=== PATIENT | male | born 1945 | race Caucasian/White ===

== ENCOUNTER 2017-07-28 15:49 | Inpatient (IN) | payer OTHER, BC ==
[2017-07-28 16:27] VITALS: BMI 31.3
--- NOTE | 2017-07-28 16:35 | PDOC ---
History of Present Illness <Kishan Jacobs - Last Filed: 07/28/17 18:01> - General History Source: Patient Exam Limitations: No Limitations - History of Present Illness Initial Comments: 07/28/17 19:00 The patient is a 71 year old male with a significant PMH of BPH (foster in place ) who sent in by PCP, Dr. Quiles to the emergency department for evaluation of A-flutter. The patient has no complaints today. The patient denies chest pain , SOB, lightheadedness, dizziness, palpiatations, leg swelling, dizziness, vision changes, numbness/tingling or weakness of the extremities. 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 The patient is complaining of dysruria but is following a urologist for this. Denies fever, chills, nausea, vomit, diarrhea and constipation. Denies frequency, urgency and hematuria. Allergies: NKA Past surgical history: None reported. Social history: No reported alcohol, drug, or cigarette use. PCP: Dr. Quiles <Milagro Monson - Last Filed: 07/28/17 19:01> - General Chief Complaint: Irregular Heart Beat Stated Complaint: pcp sent Time Seen by Provider: 07/28/17 16:27 Past History - Past Medical History Anemia: No Asthma: No Cancer: No Cardiac Disorders: No CVA: No COPD: No CHF: No Dementia: No Diabetes: No GI Disorders: No Disorders: Yes (FREQUENT URINATION) HTN: No Hypercholesterolemia: No Kidney Stones: Yes (W/LITHOTRIPSY AND UTI'S) Liver Disease: No Seizures: No Thyroid Disease: No - Surgical History Abdominal Surgery: No Appendectomy: No Cardiac Surgery: No Cholecystectomy: No Lung Surgery: No Neurologic Surgery: No Orthopedic Surgery: Yes (BILATERAL KNEE ARTHROSCOPIC SURGERY RIGHT SHOULDER SURGERY) - Suicide/Smoking/Psychosocial Hx Smoking Status: No Smoking History: Unknown if ever smoked Have you smoked in the past 12 months: No Number of Cigarettes Smoked Daily: 0 Hx Alcohol Use: Yes Drug/Substance Use Hx: No Substance Use Type: None Hx Substance Use Treatment: No <Kishan Jacobs - Last Filed: 07/28/17 18:01> <Milagro Monson - Last Filed: 07/28/17 19:01> - Past Medical History Allergies/Adverse Reactions: Allergies Allergy/AdvReac Type Severity Reaction Status Date / Time No Known Allergies Allergy Verified 07/28/17 16:16 Home Medications: Ambulatory Orders Oxycodone HCl [Oxycontin] 10 mg PO Q4H PRN 07/28/17 Tamsulosin HCl [Flomax] 0.4 mg PO DAILY 07/28/17 Review of Systems - Review of Systems Able to Perform ROS?: Yes Comments:: 07/28/17 19:00 CONSTITUTIONAL: No reported: Fever, Chills, Diaphoresis, Generalized Weakness, Malaise, Loss of Appetite HEENT: No reported: Rhinorrhea, Nasal Congestion, Throat Pain, Throat Swelling, Difficulty Swallowing, Mouth Swelling, Ear Pain, Eye Pain, Visual Changes CARDIOVASCULAR: No reported: Chest Pain, Syncope, Palpitations, Irregular Heart Rate, Lightheadedness, Peripheral Edema RESPIRATORY: No reported: Cough, Shortness of Breath, SOB with Exertion, Orthopnea, Wheezing , Stridor, Hemoptysis GASTROINTESTINAL: No reported: Abdominal pain, Abdominal Distension, Nausea, Vomiting, Diarrhea, Constipation, Melena, Hematochezia GENITOURINARY: + Dysuria, No reported: Frequency, Urgency, Hesitancy, Flank Pain, Genital Pain MUSCULOSKELETAL: No reported: Myalgia, Arthralgia, Joint Swelling, Back pain, Neck Pain SKIN: No reported: Rash, Itching, Pallor HEMEATOLOGIC/IMMUNOLOGIC: No reported: Easy Bleeding, Easy Bruising, Lymphadenopathy, Frequent infections ENDOCRINE: No reported: Unexplained Weight Gain, Unexplained Weight Loss, Heat Intolerance , Cold Intolerance NEUROLOGIC: No reported: Headache, Focal Weakness, Paresthesias, Vertigo, Lightheadedness, Unsteady Gait, Seizure, Mental Status Changes, Incontinence PSYCHIATRIC: No reported: Anxiety, Depression <Milagro Monson - Last Filed: 07/28/17 19:01> *Physical Exam - Vital Signs Last Vital Signs Temp Pulse Resp BP Pulse Ox 98 F 117 H 18 124/70 98 07/28/17 16:16 07/28/17 16:16 07/28/17 16:16 07/28/17 16:16 07/28/17 16:16 <Kishan Jacobs - Last Filed: 07/28/17 18:01> - Vital Signs Last Vital Signs Temp Pulse Resp BP Pulse Ox 98 F 117 H 18 124/70 98 07/28/17 16:16 07/28/17 16:16 07/28/17 16:16 07/28/17 16:16 07/28/17 16:16 - Physical Exam Comments: 07/28/17 19:00 "GENERAL: The patient is awake, alert, and fully oriented, Nontoxic - in no acute distress. HEAD: Normocephalic, atraumatic. EYES: extraocular movements intact, sclera anicteric, conjunctiva clear. ENT: Normal voice, Moist mucous membranes. NECK: Normal range of motion, supple LUNGS: Breath sounds equal, clear to auscultation bilaterally. No wheezes, no rhonchi, no rales. HEART: irregular, slightly tachycardic ABDOMEN: Soft, nontender, normoactive bowel sounds. No guarding, no rebound.No CVA tenderness EXTREMITIES: Normal range of motion, no edema. No clubbing or cyanosis. No cords, erythema, or tenderness. NEUROLOGICAL: No facial assymetry, Normal speech, PSYCH: Normal mood, normal affect. SKIN: Warm, Dry, normal turgor," <Milagro Monson - Last Filed: 07/28/17 19:01> Heart Score/ECG Review - ECG Impressions Comment:: 07/28/17 17:55 Twelve-lead EKG was performed and reviewed by me. Irregular, rate of 103 Incomplete right bundle-branch block Flutter waves present Impression: Atrial flutter with variable block <Kishan Jacobs - Last Filed: 07/28/17 18:01> ED Treatment Course - LABORATORY CBC & Chemistry Diagram: 07/28/17 16:58 07/28/17 16:58 <Kishan Jacobs - Last Filed: 07/28/17 18:01> - LABORATORY CBC & Chemistry Diagram: 07/28/17 16:58 07/28/17 16:58 - ADDITIONAL ORDERS Additional order review: Laboratory Results 07/28/17 07/28/17 16:58 16:58 PT with INR 11.00 INR 0.97 Sodium 136 Potassium 4.3 Chloride 103 Carbon Dioxide 30 Anion Gap 3 L BUN 27 H D Creatinine 1.5 H Creat Clearance w eGFR 46.00 Random Glucose 86 Calcium 8.7 Magnesium 2.0 Total Bilirubin 0.4 D AST 14 L D ALT 24 D Alkaline Phosphatase 76 Creatine Kinase 225 Troponin I < 0.02 Total Protein 7.3 Albumin 3.5 07/28/17 16:58 RBC 3.87 L MCV 94.4 MCHC 34.6 RDW 12.9 MPV 7.3 L Neutrophils % 61.0 D Lymphocytes % 25.6 D Monocytes % 11.8 H Eosinophils % 1.3 D Basophils % 0.3 - Medications Given in the ED: ED Medications Discontinued Medications Generic Name Dose Route Start Last Admin Trade Name Wali PRN Reason Stop Dose Admin Apixaban 5 mg 07/28/17 18:01 07/28/17 18:53 Eliquis - PO 07/28/17 18:02 5 mg NOW ONE Administration Aspirin 162 mg 07/28/17 16:51 07/28/17 17:04 Asa - PO 07/28/17 16:52 162 mg ONCE ONE Administration Metoprolol Succinate 25 mg 07/28/17 18:01 07/28/17 18:53 Toprol Xl - PO 07/28/17 18:02 25 mg ONCE ONE Administration <Milagro Monson - Last Filed: 07/28/17 19:01> Medical Decision Making - Medical Decision Making 07/28/17 16:51 71-year-old gentleman history of BPH with a Foster sent in for irregular heartbeat PMD, noted to be A. fib, is otherwise asymptomatic without any complaints including chest pain, shortness of breath, dyspnea on exertion, lightheadedness, palpitations, leg swelling, dizziness, vision changes, numbness , tingling, weakness or other complaints. The patient does have a history of dysuria recently. Atrial flutter on the patient's EKG here rate controlled to low 100s [id number] score of 1 will give aspirin We'll place on a beautician apprentice Will obtain blood work Will discuss with cardiology anticipate observation for further workup 07/28/17 17:51 labs reviewed pts HR controlled case peter tamayo agree admission for further management cassie for tele request consult w/ dr. shetty 07/28/17 18:01 case peetr shetty recommends toprol xl 25, eliquis 5mg Case discussed in detail with admitting physician including history, physical exam and ancillary studies. Admitting physician has assumed care for the patient, will follow all pending diagnostics and will complete the evaluation and treatment. <Reynaldo,Kishan - Last Filed: 07/28/17 18:01> *DC/Admit/Observation/Transfer - Discharge Dispostion Admit: Yes <Kishan Jacobs - Last Filed: 07/28/17 18:01> - Attestations Scribe Attestion: 07/28/17 19:01 Documentation prepared by Milagro Monson, acting as medical oncology physician for Kishan Jacobs MD. <Milagro Monson - Last Filed: 07/28/17 19:01> Diagnosis at time of Disposition: Atrial fibrillation and flutter - Discharge Dispostion Condition at time of disposition: Guarded
[2017-07-28] MEDS ORDERED: ASPIRIN 81 MG CHEWABLE TABLETS PO ONE (16:51)
[2017-07-28] MEDS ORDERED: ASPIRIN 81 MG CHEWABLE TABLETS ONE (17:01)
[2017-07-28 17:18] LABS: BASO % 0.3 % (0-2.0); EOS % 1.3 % (0-4.5); HEMATOCRIT 36.5 % (35.4-49); HEMOGLOBIN 12.6 GM/dL (11.7-16.9); LYMPH % 25.6 % (8-40); MCH 32.7 pg (25.7-33.7); MCHC 34.6 g/dl (32.0-35.9); MEAN CELL VOLUME 94.4 fl (80-96); MEAN PLT VOLUME 7.3 fl (7.5-11.1); MONO % 11.8 % (3.8-10.2); PLATELET COUNT 194 K/MM3 (134-434); RBC 3.87 M/mm3 (4.00-5.60); RDW 12.9 % (11.9-15.9); WHITE BLOOD COUNT 7.6 K/mm3 (4.0-10.0)
[2017-07-28 17:41] LABS: INR 0.97 (0.82-1.09)
[2017-07-28 17:43] LABS: ALBUMIN 3.5 g/dl (3.4-5.0); ALK PHOS 76 U/L (45-117); ANION GAP 3 (8-16); BILIRUBIN,TOTAL 0.4 mg/dL (0.2-1.0); BLOOD UREA NITROGEN 27 mg/dL (7-18); CALCIUM 8.7 mg/dL (8.5-10.1); CHLORIDE 103 mmol/L (98-107); CO2 30 mmol/L (21-32); CREATININE 1.5 mg/dL (0.7-1.3); GLUCOSE,RANDOM 86 mg/dL (74-106); POTASSIUM 4.3 mmol/L (3.5-5.1); SGOT/AST 14 U/L (15-37); SGPT/ALT 24 U/L (12-78); SODIUM 136 mmol/L (136-145); TOT PROT 7.3 g/dl (6.4-8.2)
[2017-07-28] MEDS ORDERED: APIXABAN 5 MG TABLET PO ONE (18:01)
[2017-07-28] MEDS ORDERED: metoPROLOL SUCCINATE 25 MG TAB.SR.24H (FP) PO ONE (18:01)
--- NOTE | 2017-07-29 07:17 | HP ---
Admitting History and Physical - Admission Chief Complaint: Dysuria History of Present Illness: 71 yo male who was seen in he office by me for dysuria. eh patient has h/p BPH and had a Cates's catheter placed approximately 2 weeks ago for urinary retention, No urine culture was erformed at that time. Since then he started to esperience dysuria and pain taht required Percocoe. he presented to my office with the above complaints. When examined he was found to be in A fib/flutter which are new. He denoes any cjest pain or dyspnea but when examined by me he had orthopnea. he was refered to ER for admission and evaluation. Limitations to Obtaining History: No Limitations - Past Medical History Gastrointestinal: Yes: Constipation Renal/: Yes: Hematuria, Other (urinary retention) - Smoking History Smoking history: Unknown if ever smoked Have you smoked in the past 12 months: No Aproximately how many cigarettes per day: 0 - Alcohol/Substance Use Hx Alcohol Use: Yes Home Medications - Allergies Allergies/Adverse Reactions: Allergies Allergy/AdvReac Type Severity Reaction Status Date / Time No Known Allergies Allergy Verified 07/28/17 16:16 - Home Medications Home Medications: Ambulatory Orders Oxycodone HCl [Oxycontin] 10 mg PO Q4H PRN 07/28/17 Tamsulosin HCl [Flomax] 0.4 mg PO DAILY 07/28/17 Physical Examination Vital Signs: Vital Signs Temperature 98 F 07/28/17 16:16 Pulse Rate 86 07/29/17 05:03 Respiratory Rate 18 07/29/17 05:03 Blood Pressure 121/64 07/29/17 05:03 O2 Sat by Pulse Oximetry (%) 95 07/29/17 05:03 Labs: CBC, BMP 07/28/17 16:58 07/28/17 16:58 Problem List - Problems (1) Atrial fibrillation and flutter Assessment/Plan: new onset patient has spontaneously controlled rate Eliquis 5 mg bid ECHO cardiac enzymes and serial EKG's Code(s): I48.91 - UNSPECIFIED ATRIAL FIBRILLATION; I48.92 - UNSPECIFIED ATRIAL FLUTTER (2) Urinary retention Assessment/Plan: Flomax 0.4 mg daily Urology consult possible underlying UTI urine culture pending Code(s): R33.9 - RETENTION OF URINE, UNSPECIFIED (3) Urinary retention due to benign prostatic hyperplasia Code(s): N40.1 - BENIGN PROSTATIC HYPERPLASIA WITH LOWER URINARY TRACT SYMP; R33.8 - OTHER RETENTION OF URINE (4) BPH (benign prostatic hyperplasia) Assessment/Plan: Flomax 0.4v mg daily Code(s): N40.0 - BENIGN PROSTATIC HYPERPLASIA WITHOUT LOWER URINRY TRACT SYMP
--- NOTE | 2017-07-29 08:50 | CON.CARD ---
Consult Consult Specialty:: Cardiology Referred by:: Debbie Schultz MD Reason for Consultation:: Newly diagnosed atrial flutter - History of Present Illness Chief Complaint: Dysuria History of Present Illness: 71 yo male with h/o BPH, urinary retention post Foster's catheter placed approximately 2 weeks ago presented initially for dysuria and bladder spasm. Found incidentally to be in asymptomatic newly-diagnosed A fib/flutter. He denies any chest pain, dyspnea, palpitations, near or true syncope, orthopnea, PND or LE edema. - Past Medical History Gastrointestinal: Yes: Constipation Renal/: Yes: Hematuria, Other (urinary retention) - Alcohol/Substance Use Hx Alcohol Use: Yes - Smoking History Smoking history: Unknown if ever smoked Have you smoked in the past 12 months: No Aproximately how many cigarettes per day: 0 Home Medications - Allergies Allergies/Adverse Reactions: Allergies Allergy/AdvReac Type Severity Reaction Status Date / Time No Known Allergies Allergy Verified 07/28/17 16:16 - Home Medications Home Medications: Ambulatory Orders Oxycodone HCl [Oxycontin] 10 mg PO Q4H PRN 07/28/17 Tamsulosin HCl [Flomax] 0.4 mg PO DAILY 07/28/17 Review of Systems - Review of Systems Genitourinary: reports: Dysuria Vital Signs: Vital Signs Temperature 97.8 F 07/29/17 08:28 Pulse Rate 76 07/29/17 08:32 Respiratory Rate 16 07/29/17 08:28 Blood Pressure 123/67 07/29/17 08:28 O2 Sat by Pulse Oximetry (%) 98 07/29/17 08:32 Constitutional: Yes: No Distress, Calm Neck: Yes: Supple Respiratory: Yes: Regular, CTA Bilaterally Gastrointestinal: Yes: Normal Bowel Sounds, Soft Cardiovascular: Yes: Pulse Irregular JVD: No Carotid Bruit: No Heart Sounds: Yes: S1, S2 Murmur: Yes: Systolic Murmur, Grade 1 Edema: No - Other Data Labs, Other Data: CBC, BMP 07/28/17 16:58 07/28/17 16:58 INR, PTT INR 0.97 (0.82-1.09) 07/28/17 16:58 Troponin, BNP 07/28/17 07/29/17 16:58 02:30 Troponin I < 0.02 < 0.02 Troponin, BNP 07/28/17 07/29/17 16:58 02:30 Troponin I < 0.02 < 0.02 Aflutter @ 103 Ejection Fraction %: LVEF > or = 40 % Imaging - Results Chest X-ray: Report Reviewed (NAD) Problem List - Problems (1) Chronic kidney disease (CKD) Code(s): N18.9 - CHRONIC KIDNEY DISEASE, UNSPECIFIED Qualifiers: Chronic kidney disease stage: stage 2 (mild) Qualified Code(s): N18.2 - Chronic kidney disease, stage 2 (mild) (2) Atrial fibrillation and flutter Code(s): I48.91 - UNSPECIFIED ATRIAL FIBRILLATION; I48.92 - UNSPECIFIED ATRIAL FLUTTER (3) BPH (benign prostatic hyperplasia) Code(s): N40.0 - BENIGN PROSTATIC HYPERPLASIA WITHOUT LOWER URINRY TRACT SYMP Qualifiers: Lower urinary tract symptom presence: symptoms present (4) Urinary retention due to benign prostatic hyperplasia Code(s): N40.1 - BENIGN PROSTATIC HYPERPLASIA WITH LOWER URINARY TRACT SYMP; R33.8 - OTHER RETENTION OF URINE Assessment/Plan 1. Newly diagnosed atrial flutter 2. BPH with bladder outlet obstruction post foster and dysuria 3. CKD P:1. Ruled out for CO, f/u echocardiogram to assess ventricular and valve fxn 2. Change Toprol XL to sotalol 80 bid with check QTc, Eliquis 5 bid, plan for cardioversion after several weeks of anticoagulation 3. Flomax, pyridium 4. Thank you for consultative opportunity
[2017-07-29] MEDS ORDERED: TAMSULOSIN HCL 0.4 MG CAP.ER.24H (FP) ONE (09:01)
[2017-07-29] MEDS: TAMSULOSIN HCL 0.4 MG CAP.ER.24H (FP) PO SCH (09:02)
--- NOTE | 2017-07-29 09:58 | EKG ---
Test Reason : Blood Pressure : / mmHG Vent. Rate : 103 BPM Atrial Rate : 277 BPM P-R Int : 000 ms QRS Dur : 116 ms QT Int : 328 ms P-R-T Axes : 260 007 000 degrees QTc Int : 429 ms ATRIAL FLUTTER WITH VARIABLE A-V BLOCK INCOMPLETE RIGHT BUNDLE BRANCH BLOCK ABNORMAL ECG WHEN COMPARED WITH ECG OF 20-JUN-2012 18:52, ATRIAL FLUTTER HAS REPLACED SINUS RHYTHM VENT. RATE HAS INCREASED BY 46 BPM T WAVE INVERSION MORE EVIDENT IN INFERIOR LEADS Confirmed by SHILA CARRION MD ([id number]) on 07/29/2017 9:57:25 AM Referred By: Confirmed By:SHILA CARRION MD
[2017-07-29] MEDS ORDERED: metoPROLOL SUCCINATE 25 MG TAB.SR.24H (FP) PO SCH (10:00)
[2017-07-29] MEDS: APIXABAN 5 MG TABLET PO SCH ×2 (10:06→21:47)
[2017-07-29] MEDS: COLCHICINE 0.6 MG TABLET (FP) PO SCH (10:06)
[2017-07-29] MEDS: SOTALOL HCL 80 MG TABLET (FP) PO SCH ×2 (10:06→21:47)
[2017-07-29 10:48] LABS: URINE APPEARANCE TURBID; URINE BILIRUBIN NEGATIVE (<2.0 mg/dL); URINE BLOOD 3+ (NEGATIVE); URINE COLOR DKYELLOW; URINE GLUCOSE (UA) NEGATIVE (NEGATIVE); URINE KETONE NEGATIVE (NEGATIVE); URINE NITRITE POSITIVE (NEGATIVE); URINE UROBILINOGEN NEGATIVE mg/dL (0.2-1.0)
[2017-07-29 11:32] LABS: URINE LEUK ESTERASE 3+ (NEGATIVE); URINE PROTEIN 2+ (NEGATIVE)
[2017-07-29 12:13] LABS: URINE BACTERIA MODERATE /hpf (NONE SEEN); URINE MUCUS RARE
--- NOTE | 2017-07-29 12:36 | CON.GU ---
Consult Consult Specialty:: Referred by:: Marion Reason for Consultation:: BPH - History of Present Illness Chief Complaint: BPH History of Present Illness: 71 year old male followed by a urologist on [place] with a long history of BPH has been having trouble voiding for the last month. His urologist placed a foster catheter earlier this week. He has been complaining of pain from the catheter ever since. - History Source History Provided By: Patient, Medical Record - Past Medical History Gastrointestinal: Yes: Constipation Renal/: Yes: BPH, Hematuria, Other (urinary retention) - Alcohol/Substance Use Hx Alcohol Use: Yes - Smoking History Smoking history: Unknown if ever smoked Have you smoked in the past 12 months: No Aproximately how many cigarettes per day: 0 Home Medications - Allergies Allergies/Adverse Reactions: Allergies Allergy/AdvReac Type Severity Reaction Status Date / Time No Known Allergies Allergy Verified 07/28/17 16:16 - Home Medications Home Medications: Ambulatory Orders Oxycodone HCl [Oxycontin] 10 mg PO Q4H PRN 07/28/17 Tamsulosin HCl [Flomax] 0.4 mg PO DAILY 07/28/17 Review of Systems - Review of Systems Genitourinary: reports: Dysuria, Frequency, Hematuria, Urgency Physical Exam- Vital Signs: Vital Signs Temperature 97.8 F 07/29/17 08:28 Pulse Rate 76 07/29/17 08:32 Respiratory Rate 16 07/29/17 08:28 Blood Pressure 123/67 07/29/17 08:28 O2 Sat by Pulse Oximetry (%) 98 07/29/17 08:32 Renal/: Yes: Foster Present. No: Bladder Distention, CVA Tenderness - Left, CVA Tenderness - Right, Hematuria, Incontinence Kidneys: No: Flank Pain Left, FLank Pain Right Pelvis: No: Bladder Palpable, Bladder Distended Labs: CBC, BMP 07/28/17 16:58 07/28/17 16:58 Problem List - Problems (1) Urinary retention due to benign prostatic hyperplasia Assessment/Plan: catheter appears to be in proper position and is draining well and without blood. start flomax. trial of void tomorrow. Code(s): N40.1 - BENIGN PROSTATIC HYPERPLASIA WITH LOWER URINARY TRACT SYMP; R33.8 - OTHER RETENTION OF URINE
[2017-07-29] MEDS ORDERED: DOCUSATE SODIUM 100 MG CAPSULE (FP) PO PRN (13:45)
--- NOTE | 2017-07-29 13:49 | PN ---
Progress Note, Physician Chief Complaint: patient examined - Current Medication List Current Medications: Active Medications Apixaban (Eliquis -) 5 mg PO BID [facility] Last Admin: 07/29/17 10:06 Dose: 5 mg Colchicine (Colcrys -) 0.6 mg PO DAILY [facility] Last Admin: 07/29/17 10:06 Dose: 0.6 mg Docusate Sodium (Colace -) 100 mg PO BID PRN PRN Reason: CONSTIPATION Oxycodone/Acetaminophen (Percocet 5/325 -) 2 combo PO TID PRN PRN Reason: PAIN LEVEL 6-10 Phenazopyridine HCl (Pyridium -) 200 mg PO TID [facility] Stop: 07/31/17 14:00 Polyethylene Glycol (Miralax (For Daily Use) -) 17 gm PO DAILY [facility] Sotalol HCl (Betapace -) 80 mg PO BID [facility] Last Admin: 07/29/17 10:06 Dose: 80 mg Tamsulosin HCl (Flomax -) 0.4 mg PO DAILY@0830 [facility] Last Admin: 07/29/17 09:02 Dose: 0.4 mg - Objective Vital Signs: Vital Signs Temperature 97.8 F 07/29/17 08:28 Pulse Rate 76 07/29/17 08:32 Respiratory Rate 16 07/29/17 08:28 Blood Pressure 123/67 07/29/17 08:28 O2 Sat by Pulse Oximetry (%) 98 07/29/17 08:32 Labs: CBC, BMP 07/28/17 16:58 07/28/17 16:58 INR, PTT INR 0.97 (0.82-1.09) 07/28/17 16:58 Problem List - Problems (1) Atrial fibrillation and flutter Code(s): I48.91 - UNSPECIFIED ATRIAL FIBRILLATION; I48.92 - UNSPECIFIED ATRIAL FLUTTER (2) Urinary retention Code(s): R33.9 - RETENTION OF URINE, UNSPECIFIED (3) Urinary retention due to benign prostatic hyperplasia Code(s): N40.1 - BENIGN PROSTATIC HYPERPLASIA WITH LOWER URINARY TRACT SYMP; R33.8 - OTHER RETENTION OF URINE (4) BPH (benign prostatic hyperplasia) Code(s): N40.0 - BENIGN PROSTATIC HYPERPLASIA WITHOUT LOWER URINRY TRACT SYMP Qualifiers: Lower urinary tract symptom presence: symptoms present
[2017-07-29] MEDS ORDERED: oxyCODONE HCL 5 MG TABLET PO PRN (14:17)
[2017-07-29] MEDS ORDERED: ACETAMINOPHEN 325 MG TABLET (FP) PO PRN (14:17)
[2017-07-29] MEDS: POLYETHYLENE GLYCOL 3350 119 GM BTL PO SCH (15:22)
[2017-07-29] MEDS: PHENAZOPYRIDINE HCL 100 MG TABLET (FP) PO SCH ×2 (16:52→21:47)
[2017-07-30] MEDS ORDERED: PT OWN MED DRAWER 7, Y5N ONE ×3 (05:26→22:22)
[2017-07-30] MEDS: PHENAZOPYRIDINE HCL 100 MG TABLET (FP) PO SCH ×3 (05:55→22:28)
[2017-07-30 07:27] LABS: BASO % 0.4 % (0-2.0); EOS % 1.8 % (0-4.5); HEMATOCRIT 38.7 % (35.4-49); HEMOGLOBIN 13.2 GM/dL (11.7-16.9); LYMPH % 27.7 % (8-40); MCH 32.2 pg (25.7-33.7); MCHC 34.1 g/dl (32.0-35.9); MEAN CELL VOLUME 94.6 fl (80-96); MEAN PLT VOLUME 7.3 fl (7.5-11.1); MONO % 12.7 % (3.8-10.2); NEUT % 57.4 % (42.8-82.8); PLATELET COUNT 218 K/MM3 (134-434); RBC 4.09 M/mm3 (4.00-5.60); RDW 12.8 % (11.9-15.9); WHITE BLOOD COUNT 7.6 K/mm3 (4.0-10.0)
[2017-07-30 07:50] LABS: ALBUMIN 3.4 g/dl (3.4-5.0); ANION GAP 2 (8-16); BLOOD UREA NITROGEN 25 mg/dL (7-18); CALCIUM 8.7 mg/dL (8.5-10.1); CHLORIDE 103 mmol/L (98-107); CO2 32 mmol/L (21-32); GLUCOSE,RANDOM 140 mg/dL (74-106); POTASSIUM 4.7 mmol/L (3.5-5.1); SODIUM 137 mmol/L (136-145)
[2017-07-30 07:53] LABS: ALK PHOS 76 U/L (45-117); BILIRUBIN,TOTAL 0.5 mg/dL (0.2-1.0); CREATININE 1.5 mg/dL (0.7-1.3); SGOT/AST 18 U/L (15-37); SGPT/ALT 30 U/L (12-78); TOT PROT 7.4 g/dl (6.4-8.2); URIC ACID 7.7 mg/dL (2.6-7.2)
[2017-07-30] MEDS: COLCHICINE 0.6 MG TABLET (FP) PO SCH (09:36)
[2017-07-30] MEDS: APIXABAN 5 MG TABLET PO SCH ×2 (09:36→22:23)
[2017-07-30] MEDS: TAMSULOSIN HCL 0.4 MG CAP.ER.24H (FP) PO SCH (09:36)
[2017-07-30] MEDS: POLYETHYLENE GLYCOL 3350 119 GM BTL PO SCH (09:36)
[2017-07-30] MEDS: SOTALOL HCL 80 MG TABLET (FP) PO SCH (09:36)
--- NOTE | 2017-07-30 09:45 | PN ---
Progress Note (short form) - Note Progress Note: Chief Complaint: Events noted, notes reviewed, complaining of dysuria, denies any chest pain, dyspnea or palpitations History of Present Illness: Seen and examined on telemetry. Events noted, notes reviewed, complaining of dysuria, denies any chest pain, dyspnea or palpitations Atrial flutter/atypical atrial flutter persists with periods of rapid ventricular response Echocardiography revealed moderate to severe reduction in LV systolic function, normal RV size and function, moderate LAE (4.9), mild MR and TR with no pulmonary HTN - Current Medication List Current Medications: Current Medications Acetaminophen (Tylenol -) 650 mg PO Q8H PRN PRN Reason: PAIN LEVEL 6-10 Amoxicillin/Clavulanate Potassium (Augmentin - 875mg Tablet) 1 tab PO BID@0800, 1730 [facility] Apixaban (Eliquis -) 5 mg PO BID [facility] Last Admin: 07/30/17 09:36 Dose: 5 mg Colchicine (Colcrys -) 0.6 mg PO DAILY [facility] Last Admin: 07/30/17 09:36 Dose: 0.6 mg Docusate Sodium (Colace -) 100 mg PO Q12H PRN PRN Reason: CONSTIPATION Oxycodone HCl (Roxicodone -) 10 mg PO Q8H PRN PRN Reason: PAIN LEVEL 6-10 Phenazopyridine HCl (Pyridium -) 200 mg PO TID [facility] Stop: 07/31/17 14:29 Last Admin: 07/30/17 05:55 Dose: 200 mg Polyethylene Glycol (Miralax (For Daily Use) -) 17 gm PO DAILY [facility] Last Admin: 07/30/17 09:36 Dose: 17 gm Sotalol HCl (Betapace -) 80 mg PO BID [facility] Last Admin: 07/30/17 09:36 Dose: 80 mg Tamsulosin HCl (Flomax -) 0.4 mg PO DAILY@0830 [facility] Last Admin: 07/30/17 09:36 Dose: 0.4 mg - Review of Systems Constitutional: denies: Chills, Fever Cardiovascular: as noted above Respiratory: denies: Cough or Sputum Production Gastrointestinal: denies: Nausea, Vomiting, Diarrhea, Constipation or Abdominal Discomfort Musculoskeletal: denies: Joint Pain Neurological: denies: Dizziness or Headache - Objective Vital Signs: Last Vital Signs Temp Pulse Resp BP Pulse Ox 97.9 F 110 H 20 130/64 95 07/30/17 06:00 07/30/17 06:00 07/30/17 06:00 07/30/17 06:00 07/30/17 06:00 Intake & Output 07/27/17 07/28/17 07/29/17 07/30/17 23:59 23:59 23:59 23:59 Intake Total 250 250 Balance 250 250 Weight 212 lb 212 lb Constitutional: No Distress, Calm Neck: Supple Negative JVD No Bruit Cardiovascular: S1 S2 Irregularly Irregular Respiratory: Clear to A&P Bilaterally Gastrointestinal: Soft Benign Normal Bowel Sounds Ext: Negative Edema Labs: CBC, BMP 07/30/17 06:49 07/30/17 06:49 Hepatic Panel Total Bilirubin 0.5 mg/dL (0.2-1.0) D 07/30/17 06:49 AST 18 U/L (15-37) D 07/30/17 06:49 ALT 30 U/L (12-78) D 07/30/17 06:49 Alkaline Phosphatase 76 U/L (45-117) 07/30/17 06:49 Albumin 3.4 g/dl (3.4-5.0) 07/30/17 06:49 Assessment/Plan ASSESSMENT: 1. Paroxysmal atrial atypical flutter with periods of rapid ventricular response on A/C with NOAC's, [id number] score of 2 2. Systolic LV dysfunction on echocardiography consistent with dilated cardiomyopathy, unclear ischemic cardiomyopathy versus idiopathic cardiomyopathy versus tachycardia induced cardiomyopathy, additional evaluation as outpatient 3. CKD 4. BPH with bladder outlet obstruction and UTI/urosepsis PLAN: 1. D/C Betapace related to the above noted LV systolic dysfunction and initiate Amiodarone therapy 2. Initiate Coreg therapy 3. Initiate Diovan therapy with caution and close monitoring of renal function 4. Ideally Aldactone therapy to be initiated provided renal function remains stable with the above noted Diovan therpay initiation 5. If atrial flutter is persistent plan to proceed with cardioversion (+/- LENO guidance) await resolution of the above noted UTI/urosepsis, probable outpatient procedure in 3-4 weeks, unless rate control remains an issue during the current hospitalization 6. Antibiotics as per the primary team Jim Beverly MD
[2017-07-30] MEDS: AMOX TR/POT CLAV 875MG/125MG TABLETS (FP) PO SCH ×2 (10:30→17:15)
--- NOTE | 2017-07-30 10:45 | PN ---
Progress Note (short form) - Note Progress Note: patient is feeling better on abx I spoke with his normal urologist. recommend trial of void on 07/31/17 Problem List - Problems (1) Urinary retention due to benign prostatic hyperplasia Code(s): N40.1 - BENIGN PROSTATIC HYPERPLASIA WITH LOWER URINARY TRACT SYMP; R33.8 - OTHER RETENTION OF URINE
[2017-07-30] MEDS: CARVEDILOL 6.25 MG TABLET (FP) PO SCH ×2 (12:28→22:23)
[2017-07-30] MEDS: AMIODARONE HCL 200 MG TABLET (FP) PO SCH ×2 (12:28→22:23)
[2017-07-30] MEDS: VALSARTAN 40 MG TABLET (FP) PO SCH (12:28)
--- NOTE | 2017-07-30 16:54 | PN ---
Progress Note, Physician Chief Complaint: Patient feeling well with improved dysuria, had a bowel movement today. He continues to deny chest pain, palpitations or dyspnea. - Current Medication List Current Medications: Active Medications Acetaminophen (Tylenol -) 650 mg PO Q8H PRN PRN Reason: PAIN LEVEL 6-10 Last Admin: 07/30/17 12:28 Dose: 650 mg Amiodarone HCl (Cordarone -) 200 mg PO BID [facility] Last Admin: 07/30/17 12:28 Dose: 200 mg Amoxicillin/Clavulanate Potassium (Augmentin - 875mg Tablet) 1 tab PO BID@0800, 1730 [facility] Last Admin: 07/30/17 10:30 Dose: 1 tab Apixaban (Eliquis -) 5 mg PO BID [facility] Last Admin: 07/30/17 09:36 Dose: 5 mg Carvedilol (Coreg -) 6.25 mg PO BID [facility] Last Admin: 07/30/17 12:28 Dose: 6.25 mg Colchicine (Colcrys -) 0.6 mg PO DAILY [facility] Last Admin: 07/30/17 09:36 Dose: 0.6 mg Docusate Sodium (Colace -) 100 mg PO Q12H PRN PRN Reason: CONSTIPATION Oxycodone HCl (Roxicodone -) 10 mg PO Q8H PRN PRN Reason: PAIN LEVEL 6-10 Phenazopyridine HCl (Pyridium -) 200 mg PO TID [facility] Stop: 07/31/17 14:29 Last Admin: 07/30/17 13:45 Dose: 200 mg Polyethylene Glycol (Miralax (For Daily Use) -) 17 gm PO DAILY [facility] Last Admin: 07/30/17 09:36 Dose: 17 gm Tamsulosin HCl (Flomax -) 0.4 mg PO DAILY@0830 [facility] Last Admin: 07/30/17 09:36 Dose: 0.4 mg Valsartan (Diovan -) 40 mg PO DAILY [facility] Last Admin: 07/30/17 12:28 Dose: 40 mg - Objective Vital Signs: Vital Signs Temperature 98.7 F 07/30/17 14:00 Pulse Rate 56 L 07/30/17 14:00 Respiratory Rate 20 07/30/17 10:00 Blood Pressure 104/60 07/30/17 14:00 O2 Sat by Pulse Oximetry (%) 96 07/30/17 10:00 Constitutional: Yes: No Distress, Calm Eyes: Yes: Conjunctiva Clear, EOM Intact HENT: Yes: Atraumatic, Normocephalic Neck: Yes: Supple, Trachea Midline Cardiovascular: Yes: Pulse Irregular Respiratory: Yes: Regular, CTA Bilaterally Gastrointestinal: Yes: Normal Bowel Sounds, Soft, Abdomen, Obese. No: Hepatomegaly, Splenomegaly Breast(s): Yes: WNL Musculoskeletal: Yes: WNL. No: Muscle Weakness Extremities: No: Calf Tenderness Edema: No Peripheral Pulses WNL: Yes Neurological: Yes: Alert, Oriented Psychiatric: Yes: Alert, Oriented Labs: CBC, BMP 07/30/17 06:49 07/30/17 06:49 INR, PTT INR 0.97 (0.82-1.09) 07/28/17 16:58 - ....Imaging Other: Other (ECHO decraesed left ventricle ejection fraction, global hypokinesis of the left ventricle, possible old septal wall infarct) Problem List - Problems (1) Atrial fibrillation and flutter Assessment/Plan: new onset patient has spontaneously controlled rate Eliquis 5 mg bid ECHO showing global hypokinesis of the left ventricle, Valsartan 40 mg daily was started added Amiodarone cardiac enzymes and serial EKG's Code(s): I48.91 - UNSPECIFIED ATRIAL FIBRILLATION; I48.92 - UNSPECIFIED ATRIAL FLUTTER (2) Urinary retention Assessment/Plan: Flomax 0.4 mg daily Urology consult possible underlying UTI urine culture showed Staph Aureus started Augmentin Code(s): R33.9 - RETENTION OF URINE, UNSPECIFIED (3) Urinary retention due to benign prostatic hyperplasia Assessment/Plan: d/c Cates in am Flomax to be continued Code(s): N40.1 - BENIGN PROSTATIC HYPERPLASIA WITH LOWER URINARY TRACT SYMP; R33.8 - OTHER RETENTION OF URINE (4) BPH (benign prostatic hyperplasia) Assessment/Plan: Flomax 0.4 mg daily Code(s): N40.0 - BENIGN PROSTATIC HYPERPLASIA WITHOUT LOWER URINRY TRACT SYMP Qualifiers: Lower urinary tract symptom presence: symptoms present (5) Constipation Code(s): K59.00 - CONSTIPATION, UNSPECIFIED (6) Constipation Assessment/Plan: added colace Code(s): K59.00 - CONSTIPATION, UNSPECIFIED (7) Gout Assessment/Plan: started Colcrys 0.6 mg po daily monitor uric acid Code(s): M10.9 - GOUT, UNSPECIFIED
--- NOTE | 2017-07-30 17:42 | EKG ---
Test Reason : Blood Pressure : / mmHG Vent. Rate : 095 BPM Atrial Rate : 271 BPM P-R Int : 000 ms QRS Dur : 106 ms QT Int : 370 ms P-R-T Axes : 245 -03 -11 degrees QTc Int : 464 ms ATRIAL FLUTTER WITH VARIABLE A-V BLOCK WITH PREMATURE VENTRICULAR OR ABERRANTLY CONDUCTED COMPLEXES INCOMPLETE RIGHT BUNDLE BRANCH BLOCK T WAVE ABNORMALITY, CONSIDER INFERIOR ISCHEMIA ABNORMAL ECG Confirmed by MD MICA, VICKIE ([id number]) on 07/30/2017 5:42:31 PM Referred By: Bubba PRIETO Confirmed By:VICKIE NINO MD
[2017-07-30 19:19] LABS: BASO % 0.4 % (0-2.0); EOS % 2.1 % (0-4.5); HEMATOCRIT 37.4 % (35.4-49); LYMPH % 32.1 % (8-40); MCH 32.8 pg (25.7-33.7); MCHC 34.8 g/dl (32.0-35.9); MEAN CELL VOLUME 94.5 fl (80-96); MEAN PLT VOLUME 7.6 fl (7.5-11.1); MONO % 14.2 % (3.8-10.2); NEUT % 51.2 % (42.8-82.8); PLATELET COUNT 231 K/MM3 (134-434); RBC 3.96 M/mm3 (4.00-5.60); RDW 12.9 % (11.9-15.9); WHITE BLOOD COUNT 5.9 K/mm3 (4.0-10.0)
[2017-07-31] MEDS: PHENAZOPYRIDINE HCL 100 MG TABLET (FP) PO SCH ×2 (06:08→15:00)
[2017-07-31 07:02] LABS: BASO % 0.7 % (0-2.0); EOS % 2.5 % (0-4.5); HEMATOCRIT 38.2 % (35.4-49); LYMPH % 31.3 % (8-40); MCH 32.1 pg (25.7-33.7); MEAN CELL VOLUME 94.4 fl (80-96); MEAN PLT VOLUME 7.2 fl (7.5-11.1); MONO % 13.1 % (3.8-10.2); NEUT % 52.4 % (42.8-82.8); PLATELET COUNT 223 K/MM3 (134-434); RBC 4.05 M/mm3 (4.00-5.60); RDW 12.9 % (11.9-15.9); WHITE BLOOD COUNT 6.9 K/mm3 (4.0-10.0)
[2017-07-31 07:34] LABS: ALBUMIN 3.4 g/dl (3.4-5.0); ANION GAP 3 (8-16); BILIRUBIN,TOTAL 0.4 mg/dL (0.2-1.0); BLOOD UREA NITROGEN 31 mg/dL (7-18); CHLORIDE 105 mmol/L (98-107); CO2 30 mmol/L (21-32); GLUCOSE,RANDOM 97 mg/dL (74-106); POTASSIUM 4.7 mmol/L (3.5-5.1); SGOT/AST 19 U/L (15-37); SGPT/ALT 34 U/L (12-78); SODIUM 138 mmol/L (136-145)
[2017-07-31 07:36] LABS: ALK PHOS 73 U/L (45-117); CREATININE 1.5 mg/dL (0.7-1.3); TOT PROT 7.1 g/dl (6.4-8.2)
[2017-07-31] MEDS: APIXABAN 5 MG TABLET PO SCH ×2 (09:28→22:05)
[2017-07-31] MEDS: AMIODARONE HCL 200 MG TABLET (FP) PO SCH ×2 (09:28→22:05)
[2017-07-31] MEDS: CARVEDILOL 6.25 MG TABLET (FP) PO SCH (09:28)
[2017-07-31] MEDS: COLCHICINE 0.6 MG TABLET (FP) PO SCH (09:28)
[2017-07-31] MEDS: AMOX TR/POT CLAV 875MG/125MG TABLETS (FP) PO SCH ×2 (09:28→17:44)
[2017-07-31] MEDS: VALSARTAN 40 MG TABLET (FP) PO SCH (09:28)
[2017-07-31] MEDS: POLYETHYLENE GLYCOL 3350 119 GM BTL PO SCH (09:29)
[2017-07-31] MEDS: TAMSULOSIN HCL 0.4 MG CAP.ER.24H (FP) PO SCH (09:29)
--- NOTE | 2017-07-31 09:38 | PN ---
Progress Note (short form) - Note Progress Note: patient is set up for possible cardioversion tomorrow no other complaints d/c foster today Problem List - Problems (1) Urinary retention due to benign prostatic hyperplasia Code(s): N40.1 - BENIGN PROSTATIC HYPERPLASIA WITH LOWER URINARY TRACT SYMP; R33.8 - OTHER RETENTION OF URINE
--- NOTE | 2017-07-31 11:14 | PN ---
Progress Note, Physician Chief Complaint: The patient is feeling well, his HR was fast at 139 b/min this morning. There is no edema of the lower extremities and there is no chest pain or palpitations. His symptoms of dysuria are persisting and the Cates's catheter was not removed yet. 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 - Current Medication List Current Medications: Active Medications Acetaminophen (Tylenol -) 650 mg PO Q8H PRN PRN Reason: PAIN LEVEL 6-10 Last Admin: 07/30/17 12:28 Dose: 650 mg Amiodarone HCl (Cordarone -) 200 mg PO BID [facility] Last Admin: 07/31/17 09:28 Dose: 200 mg Amoxicillin/Clavulanate Potassium (Augmentin - 875mg Tablet) 1 tab PO BID@0800, 1730 [facility] Last Admin: 07/31/17 09:28 Dose: 1 tab Apixaban (Eliquis -) 5 mg PO BID [facility] Last Admin: 07/31/17 09:28 Dose: 5 mg Carvedilol (Coreg -) 6.25 mg PO BID [facility] Last Admin: 07/31/17 09:28 Dose: 6.25 mg Colchicine (Colcrys -) 0.6 mg PO DAILY [facility] Last Admin: 07/31/17 09:28 Dose: 0.6 mg Docusate Sodium (Colace -) 100 mg PO Q12H PRN PRN Reason: CONSTIPATION Oxycodone HCl (Roxicodone -) 10 mg PO Q8H PRN PRN Reason: PAIN LEVEL 6-10 Last Admin: 07/30/17 22:23 Dose: 10 mg Phenazopyridine HCl (Pyridium -) 200 mg PO TID [facility] Stop: 07/31/17 14:29 Last Admin: 07/31/17 06:08 Dose: 200 mg Polyethylene Glycol (Miralax (For Daily Use) -) 17 gm PO DAILY [facility] Last Admin: 07/31/17 09:29 Dose: 17 gm Tamsulosin HCl (Flomax -) 0.4 mg PO DAILY@0830 [facility] Last Admin: 07/31/17 09:29 Dose: 0.4 mg Valsartan (Diovan -) 40 mg PO DAILY [facility] Last Admin: 07/31/17 09:28 Dose: 40 mg - Objective Vital Signs: Vital Signs Temperature 98.2 F 07/30/17 22:00 Pulse Rate 107 H 07/31/17 05:32 Respiratory Rate 20 07/31/17 05:32 Blood Pressure 117/64 07/31/17 05:32 O2 Sat by Pulse Oximetry (%) 98 07/30/17 21:00 Constitutional: Yes: No Distress, Calm Eyes: Yes: Conjunctiva Clear, EOM Intact HENT: Yes: Atraumatic, Normocephalic Neck: Yes: Supple, Trachea Midline Cardiovascular: Yes: Tachycardia, Pulse Irregular Respiratory: Yes: Regular, CTA Bilaterally Gastrointestinal: Yes: Normal Bowel Sounds, Soft, Abdomen, Obese. No: Hepatomegaly, Splenomegaly Musculoskeletal: Yes: WNL Extremities: No: Calf Tenderness Edema: No Neurological: Yes: Alert, Oriented Psychiatric: Yes: Alert, Oriented Labs: CBC, BMP 07/31/17 06:30 07/31/17 06:30 INR, PTT INR 0.97 (0.82-1.09) 07/28/17 16:58 Problem List - Problems (1) Atrial fibrillation and flutter Assessment/Plan: new onset the patient's HR is still high and cardioversion considered for tomorrow Eliquis 5 mg bid ECHO showing global hypokinesis of the left ventricle, Valsartan 40 mg daily was started added Amiodarone Code(s): I48.91 - UNSPECIFIED ATRIAL FIBRILLATION; I48.92 - UNSPECIFIED ATRIAL FLUTTER (2) Urinary retention Assessment/Plan: Flomax 0.4 mg daily Urology consult urine culture showed Staph Aureus started Augmentin Code(s): R33.9 - RETENTION OF URINE, UNSPECIFIED (3) Urinary retention due to benign prostatic hyperplasia Assessment/Plan: d/c Cates in am Flomax to be continued Code(s): N40.1 - BENIGN PROSTATIC HYPERPLASIA WITH LOWER URINARY TRACT SYMP; R33.8 - OTHER RETENTION OF URINE (4) BPH (benign prostatic hyperplasia) Assessment/Plan: Flomax 0.4 mg daily Code(s): N40.0 - BENIGN PROSTATIC HYPERPLASIA WITHOUT LOWER URINRY TRACT SYMP Qualifiers: Lower urinary tract symptom presence: symptoms present (5) Constipation Assessment/Plan: colace 100 mg po bid Code(s): K59.00 - CONSTIPATION, UNSPECIFIED (6) Gout Assessment/Plan: started Colcrys 0.6 mg po daily monitor uric acid left toe is better Code(s): M10.9 - GOUT, UNSPECIFIED
--- NOTE | 2017-07-31 11:25 | PN ---
Progress Note (short form) - Note Progress Note: Chief Complaint: Events noted, notes reviewed, complaining of dysuria but improved, denies any chest pain, dyspnea or palpitations, atrial flutter with periods of rapid ventricular response persist History of Present Illness: Seen and examined on telemetry. Events noted, notes reviewed, complaining of dysuria but improved, denies any chest pain, dyspnea or palpitations, atrial flutter with periods of rapid ventricular response persist In view of the above noted persistent atrial flutter/atypical atrial flutter with periods of rapid ventricular response recommend proceeding with early intervention including LENO guided cardioversion, risk, benefits and alternatives were reviewed in detail Echocardiography revealed moderate to severe reduction in LV systolic function, normal RV size and function, moderate LAE (4.9), mild MR and TR with no pulmonary HTN - Current Medication List Current Medications: Current Medications Acetaminophen (Tylenol -) 650 mg PO Q8H PRN PRN Reason: PAIN LEVEL 6-10 Last Admin: 07/30/17 12:28 Dose: 650 mg Amiodarone HCl (Cordarone -) 200 mg PO BID [facility]S [facility] Last Admin: 07/31/17 09:28 Dose: 200 mg Amoxicillin/Clavulanate Potassium (Augmentin - 875mg Tablet) 1 tab PO BID@0800, 1730 [facility] 234 [facility]S AT [facility] Last Admin: 07/31/17 09:28 Dose: 1 tab Apixaban (Eliquis -) 5 mg PO BID [facility] 234 BEDS AT [facility] Last Admin: 07/31/17 09:28 Dose: 5 mg Carvedilol (Coreg -) 6.25 mg PO BID [facility] 234 BEDS AT [facility] Last Admin: 07/31/17 09:28 Dose: 6.25 mg Colchicine (Colcrys -) 0.6 mg PO DAILY [facility] 234 BEDS AT [facility] Last Admin: 07/31/17 09:28 Dose: 0.6 mg Docusate Sodium (Colace -) 100 mg PO Q12H PRN PRN Reason: CONSTIPATION Oxycodone HCl (Roxicodone -) 10 mg PO Q8H PRN PRN Reason: PAIN LEVEL 6-10 Last Admin: 07/30/17 22:23 Dose: 10 mg Phenazopyridine HCl (Pyridium -) 200 mg PO TID [facility] 234 B[facility]S AT [facility] Stop: 07/31/17 14:29 Last Admin: 07/31/17 06:08 Dose: 200 mg Polyethylene Glycol (Miralax (For Daily Use) -) 17 gm PO DAILY [facility] 234 BEDS [facility] Last Admin: 07/31/17 09:29 Dose: 17 gm Tamsulosin HCl (Flomax -) 0.4 mg PO DAILY@0830 [facility] 234 BEDS AT [facility] Last Admin: 07/31/17 09:29 Dose: 0.4 mg Valsartan (Diovan -) 40 mg PO DAILY [facility] 234 BEDS AT [facility] Last Admin: 07/31/17 09:28 Dose: 40 mg - Review of Systems Constitutional: denies: Chills, Fever Cardiovascular: as noted above Respiratory: denies: Cough or Sputum Production Gastrointestinal: denies: Nausea, Vomiting, Diarrhea, Constipation or Abdominal Discomfort Musculoskeletal: denies: Joint Pain Neurological: denies: Dizziness or Headache - Objective Vital Signs: Last Vital Signs Temp Pulse Resp BP Pulse Ox 98.2 F 107 H 20 117/64 98 07/30/17 22:00 07/31/17 05:32 07/31/17 05:32 07/31/17 05:32 07/30/17 21:00 Intake & Output 07/28/17 07/29/17 07/30/17 07/31/17 23:59 23:59 23:59 23:59 Intake Total 250 970 Balance 250 970 Weight 212 lb 212 lb Constitutional: No Distress, Calm Neck: Supple Negative JVD No Bruit Cardiovascular: S1 S2 Irregularly Irregular Respiratory: Clear to A&P Bilaterally Gastrointestinal: Soft Benign Normal Bowel Sounds Ext: Negative Edema Labs: CBC, BMP 07/31/17 06:30 07/31/17 06:30 Assessment/Plan ASSESSMENT: 1. Paroxysmal atrial atypical flutter with periods of rapid ventricular response on A/C with NOAC's, [id number] score of 2 2. Systolic LV dysfunction on echocardiography consistent with dilated cardiomyopathy, unclear ischemic cardiomyopathy versus idiopathic cardiomyopathy versus tachycardia induced cardiomyopathy, additional evaluation as outpatient 3. CKD 4. BPH with bladder outlet obstruction and UTI/urosepsis, resolving infection PLAN: 1. Continue Amiodarone with close monitoring of QTc interval 2. Continue Coreg therapy and titrate as tolerated and hemodynaics permitting 3. Continue Diovan therapy with caution and close monitoring of renal function 4. Ideally Aldactone therapy to be initiated provided renal function remains stable 5. Plan to proceed LENO guided cardioversion for management of the above noted atrial flutter with periods of rapid ventricular response as noted above risk, benefits and alternatives were reviewed in detail 6. Antibiotics as per the primary team Jim Beverly MD
[2017-07-31] MEDS ORDERED: PT OWN MED DRAWER 7, Y5N ONE (15:31)
[2017-07-31] MEDS: CARVEDILOL 12.5 MG TABLET (FP) PO SCH (22:05)
[2017-08-01 06:06] LABS: BASO % 0.5 % (0-2.0); EOS % 2.6 % (0-4.5); HEMATOCRIT 37.9 % (35.4-49); HEMOGLOBIN 13.1 GM/dL (11.7-16.9); LYMPH % 28.2 % (8-40); MCH 32.6 pg (25.7-33.7); MCHC 34.5 g/dl (32.0-35.9); MEAN CELL VOLUME 94.6 fl (80-96); MONO % 13.5 % (3.8-10.2); NEUT % 55.2 % (42.8-82.8); PLATELET COUNT 231 K/MM3 (134-434); RDW 12.6 % (11.9-15.9); WHITE BLOOD COUNT 6.8 K/mm3 (4.0-10.0)
[2017-08-01 06:35] LABS: CHLORIDE 107 mmol/L (98-107); POTASSIUM 4.6 mmol/L (3.5-5.1); SODIUM 141 mmol/L (136-145)
[2017-08-01 06:42] LABS: ALBUMIN 3.4 g/dl (3.4-5.0); ALK PHOS 72 U/L (45-117); ANION GAP 4 (8-16); BILIRUBIN,TOTAL 0.4 mg/dL (0.2-1.0); BLOOD UREA NITROGEN 28 mg/dL (7-18); CALCIUM 8.9 mg/dL (8.5-10.1); CO2 30 mmol/L (21-32); CREATININE 1.5 mg/dL (0.7-1.3); GLUCOSE,RANDOM 100 mg/dL (74-106); MAGNESIUM 2.2 mg/dL (1.8-2.4); SGOT/AST 20 U/L (15-37); SGPT/ALT 35 U/L (12-78)
[2017-08-01] MEDS: TAMSULOSIN HCL 0.4 MG CAP.ER.24H (FP) PO SCH (07:59)
--- NOTE | 2017-08-01 09:22 | PN ---
Progress Note, Physician Chief Complaint: Events noted Remains in AF with variable ventricular response History of Present Illness: Patient was seen and examined. Awake and alert. Chart was reviewed Denies chest pain, SOB or palpitations. LENO and synchronized cardioversion planned today. Risks and benefits discussed - Current Medication List Current Medications: Active Medications Acetaminophen (Tylenol -) 650 mg PO Q8H PRN PRN Reason: PAIN LEVEL 6-10 Last Admin: 07/30/17 12:28 Dose: 650 mg Amiodarone HCl (Cordarone -) 200 mg PO BID [facility] Last Admin: 07/31/17 22:05 Dose: 200 mg Amoxicillin/Clavulanate Potassium (Augmentin - 875mg Tablet) 1 tab PO BID@0800, 1730 [facility] Last Admin: 07/31/17 17:44 Dose: 1 tab Apixaban (Eliquis -) 5 mg PO BID [facility] Last Admin: 07/31/17 22:05 Dose: 5 mg Carvedilol (Coreg -) 12.5 mg PO BID [facility] Last Admin: 07/31/17 22:05 Dose: 12.5 mg Colchicine (Colcrys -) 0.6 mg PO DAILY [facility] Last Admin: 07/31/17 09:28 Dose: 0.6 mg Docusate Sodium (Colace -) 100 mg PO Q12H PRN PRN Reason: CONSTIPATION Oxycodone HCl (Roxicodone -) 10 mg PO Q8H PRN PRN Reason: PAIN LEVEL 6-10 Last Admin: 07/30/17 22:23 Dose: 10 mg Polyethylene Glycol (Miralax (For Daily Use) -) 17 gm PO DAILY [facility] Last Admin: 07/31/17 09:29 Dose: 17 gm Tamsulosin HCl (Flomax -) 0.4 mg PO DAILY@0830 [facility] Last Admin: 08/01/17 07:59 Dose: 0.4 mg Valsartan (Diovan -) 40 mg PO DAILY [facility] Last Admin: 07/31/17 09:28 Dose: 40 mg - Objective Vital Signs: Vital Signs Temperature 98 F 08/01/17 05:47 Pulse Rate 66 08/01/17 05:47 Respiratory Rate 20 08/01/17 05:47 Blood Pressure 104/64 08/01/17 05:47 O2 Sat by Pulse Oximetry (%) 95 07/31/17 21:00 Constitutional: Yes: Well Nourished Eyes: Yes: PERRL HENT: Yes: Atraumatic Neck: Yes: Supple Cardiovascular: Yes: Pulse Irregular, S1, S2 Respiratory: Yes: CTA Bilaterally Gastrointestinal: Yes: Normal Bowel Sounds, Soft. No: Tenderness Edema: No Additional Findings/Remarks: - Review of Systems Constitutional: denies: Chills, Fever Cardiovascular: Denies chest pain, SOB, palpitations Respiratory: denies: Cough or Sputum Production Gastrointestinal: denies: Nausea, Vomiting, Diarrhea, Constipation or Abdominal Discomfort Musculoskeletal: denies: Joint Pain Neurological: denies: Dizziness or Headache Labs: CBC, BMP 08/01/17 05:51 08/01/17 05:51 INR, PTT INR 0.97 (0.82-1.09) 07/28/17 16:58 Problem List - Problems (1) Dilated cardiomyopathy Code(s): I42.0 - DILATED CARDIOMYOPATHY (2) Atrial fibrillation and flutter Code(s): I48.91 - UNSPECIFIED ATRIAL FIBRILLATION; I48.92 - UNSPECIFIED ATRIAL FLUTTER (3) Chronic kidney disease (CKD) Code(s): N18.9 - CHRONIC KIDNEY DISEASE, UNSPECIFIED Qualifiers: Chronic kidney disease stage: stage 2 (mild) Qualified Code(s): N18.2 - Chronic kidney disease, stage 2 (mild) (4) BPH (benign prostatic hyperplasia) Code(s): N40.0 - BENIGN PROSTATIC HYPERPLASIA WITHOUT LOWER URINRY TRACT SYMP Qualifiers: Lower urinary tract symptom presence: symptoms present Assessment/Plan 1. Paroxysmal atrial atypical flutter with periods of rapid ventricular response on A/C with NOAC, [id number] score of 2 2. Systolic LV dysfunction consistent with dilated cardiomyopathy possible tachycardia mediated, cannot rule out ischemia 3. CKD 4. BPH with bladder outlet obstruction and UTI/urosepsis PLAN: 1. Continue Amiodarone with close monitoring of QTc interval 2. Continue Coreg and Diovan as tolerated 3. Ideally Aldactone therapy to be initiated provided renal function remains stable 4. Plan to proceed LENO guided synchronized cardioversion today 5. Empiric antibiotics Further plans are to follow Milton Sales MD
[2017-08-01] MEDS: POLYETHYLENE GLYCOL 3350 119 GM BTL PO SCH (09:29)
[2017-08-01] MEDS: APIXABAN 5 MG TABLET PO SCH ×3 (09:29→22:47)
[2017-08-01] MEDS: AMIODARONE HCL 200 MG TABLET (FP) PO SCH ×3 (09:29→22:47)
[2017-08-01] MEDS: AMOX TR/POT CLAV 875MG/125MG TABLETS (FP) PO SCH ×2 (09:29→18:15)
[2017-08-01] MEDS: CARVEDILOL 12.5 MG TABLET (FP) PO SCH ×3 (09:29→22:47)
[2017-08-01] MEDS: COLCHICINE 0.6 MG TABLET (FP) PO SCH ×2 (09:29→09:40)
[2017-08-01] MEDS: VALSARTAN 40 MG TABLET (FP) PO SCH (09:29)
[2017-08-01 10:23] LABS: CHOLESTEROL 148 mg/dL (50-200); HDL CHOLESTEROL 47 mg/dL (40-60); LDL CHOLESTEROL (ONLY SJRH) 88 mg/dL (5-100); TRIGLYCERIDES 136 mg/dL (35-160)
--- NOTE | 2017-08-01 11:42 | EKG ---
Test Reason : Blood Pressure : / mmHG Vent. Rate : 094 BPM Atrial Rate : 282 BPM P-R Int : 000 ms QRS Dur : 108 ms QT Int : 346 ms P-R-T Axes : 000 -05 000 degrees QTc Int : 432 ms ATRIAL FLUTTER WITH VARIABLE A-V BLOCK WITH PREMATURE VENTRICULAR OR ABERRANTLY CONDUCTED COMPLEXES ABNORMAL ECG WHEN COMPARED WITH ECG OF 28-JUL-2017 16:13, NO SIGNIFICANT CHANGE WAS FOUND Confirmed by WEI FRIAS, CONSTANTINE ([id number]) on 08/01/2017 11:42:23 AM Referred By: Confirmed By:CONSTANTINE CARVAJAL MD
--- NOTE | 2017-08-01 11:42 | EKG ---
Test Reason : Blood Pressure : / mmHG Vent. Rate : 096 BPM Atrial Rate : 278 BPM P-R Int : 000 ms QRS Dur : 104 ms QT Int : 372 ms P-R-T Axes : 266 007 027 degrees QTc Int : 469 ms ATRIAL FLUTTER WITH VARIABLE A-V BLOCK INCOMPLETE RIGHT BUNDLE BRANCH BLOCK NONSPECIFIC ST ABNORMALITY ABNORMAL ECG WHEN COMPARED WITH ECG OF 29-JUL-2017 00:45, NO SIGNIFICANT CHANGE WAS FOUND Confirmed by WEI FRIAS, CONSTANTINE ([id number]) on 08/01/2017 11:41:43 AM Referred By: Confirmed By:CONSTANTINE CARVAJAL MD
[2017-08-01] MEDS ORDERED: LIDOCAINE VISCOUS 2% ORAL/TOP 20 ML UNIT-DOSE CUP ONE (14:23)
[2017-08-01] MEDS ORDERED: ETOMIDATE 20 MG/10 ML AMPUL IVPUSH ONE (14:32)
[2017-08-01] MEDS ORDERED: PROPOFOL 20 ML ONE (14:32)
[2017-08-01] MEDS ORDERED: LIDOCAINE VISCOUS 2% ORAL/TOP 20 ML UNIT-DOSE CUP MM ONE (14:43)
--- NOTE | 2017-08-01 17:26 | EKG ---
Test Reason : Blood Pressure : / mmHG Vent. Rate : 061 BPM Atrial Rate : 061 BPM P-R Int : 158 ms QRS Dur : 106 ms QT Int : 416 ms P-R-T Axes : 039 001 011 degrees QTc Int : 418 ms NORMAL SINUS RHYTHM INCOMPLETE RIGHT BUNDLE BRANCH BLOCK BORDERLINE ECG WHEN COMPARED WITH ECG OF 30-JUL-2017 09:26, SINUS RHYTHM HAS REPLACED ATRIAL FLUTTER VENT. RATE HAS DECREASED BY 34 BPM Confirmed by WEI FRIAS, CONSTANTINE ([id number]) on 08/01/2017 5:25:59 PM Referred By: CONSTANTINE CARVAJAL Confirmed By:CONSTANTINE CARVAJAL MD
--- NOTE | 2017-08-01 21:42 | PN ---
Progress Note, Physician Chief Complaint: The patient was cardioverted earlier today and tolerated well the procedure. he is is sinus rhythm now and has no complaints. The Cates's catheter was removed and patient is urinating spontaneously without complaints. - Current Medication List Current Medications: Active Medications Acetaminophen (Tylenol -) 650 mg PO Q8H PRN PRN Reason: PAIN LEVEL 6-10 Last Admin: 07/30/17 12:28 Dose: 650 mg Amiodarone HCl (Cordarone -) 200 mg PO BID [facility] Last Admin: 08/01/17 09:41 Dose: 200 mg Amoxicillin/Clavulanate Potassium (Augmentin - 875mg Tablet) 1 tab PO BID@0800, 1730 [facility] Last Admin: 08/01/17 18:15 Dose: 1 tab Apixaban (Eliquis -) 5 mg PO BID [facility] Last Admin: 08/01/17 09:41 Dose: 5 mg Carvedilol (Coreg -) 12.5 mg PO BID [facility] Last Admin: 08/01/17 09:40 Dose: 12.5 mg Colchicine (Colcrys -) 0.6 mg PO DAILY [facility] Last Admin: 08/01/17 09:40 Dose: 0.6 mg Docusate Sodium (Colace -) 100 mg PO Q12H PRN PRN Reason: CONSTIPATION Polyethylene Glycol (Miralax (For Daily Use) -) 17 gm PO DAILY [facility] Last Admin: 08/01/17 09:29 Dose: Not Given Tamsulosin HCl (Flomax -) 0.4 mg PO DAILY@0830 [facility] Last Admin: 08/01/17 07:59 Dose: 0.4 mg Valsartan (Diovan -) 40 mg PO DAILY [facility] Last Admin: 08/01/17 09:29 Dose: Not Given - Objective Vital Signs: Vital Signs Temperature 98.8 F 08/01/17 18:00 Pulse Rate 87 08/01/17 18:00 Respiratory Rate 18 08/01/17 18:00 Blood Pressure 107/67 08/01/17 18:00 O2 Sat by Pulse Oximetry (%) 98 08/01/17 15:56 Constitutional: Yes: No Distress, Calm Eyes: Yes: Conjunctiva Clear, EOM Intact HENT: Yes: Atraumatic, Normocephalic Neck: Yes: Supple, Trachea Midline Cardiovascular: Yes: S1, S2 Respiratory: Yes: Regular, CTA Bilaterally Gastrointestinal: Yes: Normal Bowel Sounds, Soft, Abdomen, Obese. No: Hepatomegaly, Splenomegaly ...Rectal Exam: Yes: Deferred Breast(s): Yes: WNL Musculoskeletal: Yes: WNL Extremities: No: Calf Tenderness Edema: No Peripheral Pulses WNL: Yes Neurological: Yes: Alert, Oriented Psychiatric: Yes: Alert, Oriented Labs: CBC, BMP 08/01/17 05:51 08/01/17 05:51 INR, PTT INR 0.97 (0.82-1.09) 07/28/17 16:58 Problem List - Problems (1) Atrial fibrillation and flutter Assessment/Plan: new onset the patient had cardioversion and is in sinus rhythm now Eliquis 5 mg bid ECHO showing global hypokinesis of the left ventricle, Valsartan 40 mg daily was started added Amiodarone Code(s): I48.91 - UNSPECIFIED ATRIAL FIBRILLATION; I48.92 - UNSPECIFIED ATRIAL FLUTTER (2) Urinary retention Assessment/Plan: Flomax 0.4 mg daily Urology consult urine culture showed Staph Aureus started Augmentin with good results Code(s): R33.9 - RETENTION OF URINE, UNSPECIFIED (3) Urinary retention due to benign prostatic hyperplasia Assessment/Plan: Cates' was discontinued Flomax to be continued Code(s): N40.1 - BENIGN PROSTATIC HYPERPLASIA WITH LOWER URINARY TRACT SYMP; R33.8 - OTHER RETENTION OF URINE (4) BPH (benign prostatic hyperplasia) Assessment/Plan: Flomax 0.4 mg daily Code(s): N40.0 - BENIGN PROSTATIC HYPERPLASIA WITHOUT LOWER URINRY TRACT SYMP Qualifiers: Lower urinary tract symptom presence: symptoms present
--- NOTE | 2017-08-02 08:20 | PN ---
Progress Note (short form) - Note Progress Note: Chief Complaint: Events noted, notes reviewed, post successful LENO guided synchronized cardioversion, sinus rhythm is maintained, denies any chest pain, dyspnea or palpitations History of Present Illness: Seen and examined on telemetry. Events noted, notes reviewed, post successful LENO guided synchronized cardioversion, sinus rhythm is maintained, denies any chest pain, dyspnea or palpitations Long discussion with the patient regarding importance of compliance to therapy administration including continuation of A/C indefinitely at this point considering his [id number] score of 2 with underlying severe LV systolic dysfunction Patient can be D/C home from cardiovascular point of view and would recommend Life-Vest utilization pending LVEF re-evaluation in 90 days Echocardiography revealed moderate to severe reduction in LV systolic function, normal RV size and function, moderate LAE (4.9), mild MR and TR with no pulmonary HTN - Current Medication List Current Medications: Current Medications Acetaminophen (Tylenol -) 650 mg PO Q8H PRN PRN Reason: PAIN LEVEL 6-10 Last Admin: 07/30/17 12:28 Dose: 650 mg Amiodarone HCl (Cordarone -) 200 mg PO BID [facility] Last Admin: 08/01/17 22:47 Dose: 200 mg Amoxicillin/Clavulanate Potassium (Augmentin - 875mg Tablet) 1 tab PO BID@0800, 1730 [facility] Last Admin: 08/01/17 18:15 Dose: 1 tab Apixaban (Eliquis -) 5 mg PO BID [facility] Last Admin: 08/01/17 22:47 Dose: 5 mg Carvedilol (Coreg -) 12.5 mg PO BID [facility] Last Admin: 08/01/17 22:47 Dose: 12.5 mg Colchicine (Colcrys -) 0.6 mg PO DAILY [facility] Last Admin: 08/01/17 09:40 Dose: 0.6 mg Docusate Sodium (Colace -) 100 mg PO Q12H PRN PRN Reason: CONSTIPATION Polyethylene Glycol (Miralax (For Daily Use) -) 17 gm PO DAILY [facility] Last Admin: 08/01/17 09:29 Dose: Not Given Tamsulosin HCl (Flomax -) 0.4 mg PO DAILY@0830 [facility] Last Admin: 08/01/17 07:59 Dose: 0.4 mg Valsartan (Diovan -) 40 mg PO DAILY [facility] Last Admin: 08/01/17 09:29 Dose: Not Given - Review of Systems Constitutional: denies: Chills, Fever Cardiovascular: as noted above Respiratory: denies: Cough or Sputum Production Gastrointestinal: denies: Nausea, Vomiting, Diarrhea, Constipation or Abdominal Discomfort Musculoskeletal: denies: Joint Pain Neurological: denies: Dizziness or Headache - Objective Vital Signs: Last Vital Signs Temp Pulse Resp BP Pulse Ox 98 F 56 L 18 112/68 98 08/02/17 08:04 08/02/17 08:04 08/02/17 08:04 08/02/17 08:04 08/01/17 21:00 Intake & Output 07/30/17 07/31/17 08/01/17 08/02/17 23:59 23:59 23:59 23:59 Intake Total 970 910 300 100 Output Total 200 Balance 970 910 100 100 Constitutional: No Distress, Calm Neck: Supple Negative JVD No Bruit Cardiovascular: S1 S2 Regular Rate and Rhythm Respiratory: Clear to A&P Bilaterally Gastrointestinal: Soft Benign Normal Bowel Sounds Ext: Negative Edema Labs: CBC, BMP 08/01/17 05:51 08/01/17 05:51 Assessment/Plan ASSESSMENT: 1. Paroxysmal atrial atypical flutter post successful LENO guided synchronized cardioversion, sinus rhythm is maintained on A/C with NOAC's, [id number] score of 2 2. Systolic LV dysfunction on echocardiography consistent with dilated cardiomyopathy, unclear ischemic cardiomyopathy versus idiopathic cardiomyopathy versus tachycardia induced cardiomyopathy, additional evaluation as outpatient is recommended including MPI study, R&LH cath coronary angiography 3. CKD 4. BPH with bladder outlet obstruction and UTI/urosepsis, resolving infection PLAN: 1. Continue Amiodarone with close monitoring of QTc interval and decrease to once daily 2. Continue Coreg therapy and titrate as tolerated and hemodynaics permitting 3. Continue Diovan therapy with caution and close monitoring of renal function and titrate as tolerated and hemodynaics permitting, may switch to Entresto as outpatient 4. Aldactone therapy to be initiated provided renal function remains stable, to initiate as outpatient 5. Antibiotics as per the primary team 6. As outlined above patient can be D/C home from cardiovascular point of view and would recommend Life-Vest utilization pending LVEF re-evaluation in 90 days , can be arranged as outpatient Above was discussed in detail with the patient Jim Beverly MD
[2017-08-02] MEDS ORDERED: PT OWN MED DRAWER 7, Y5N ONE (08:28)
--- NOTE | 2017-08-02 09:31 | PN ---
Progress Note (short form) - Note Progress Note: Anesthesia postop note 71 y/o M s/p GA for LENO POD#1, vss, aaox3, no complaints. No anesthesia complications.
[2017-08-02] MEDS: TAMSULOSIN HCL 0.4 MG CAP.ER.24H (FP) PO SCH (09:45)
[2017-08-02] MEDS: AMIODARONE HCL 200 MG TABLET (FP) PO SCH (09:45)
[2017-08-02] MEDS: CARVEDILOL 12.5 MG TABLET (FP) PO SCH (09:45)
[2017-08-02] MEDS: VALSARTAN 40 MG TABLET (FP) PO SCH (09:45)
[2017-08-02] MEDS: AMOX TR/POT CLAV 875MG/125MG TABLETS (FP) PO SCH (09:45)
[2017-08-02] MEDS: COLCHICINE 0.6 MG TABLET (FP) PO SCH (09:45)
[2017-08-02] MEDS: APIXABAN 5 MG TABLET PO SCH (09:45)
[2017-08-02] MEDS: POLYETHYLENE GLYCOL 3350 119 GM BTL PO SCH (09:48)
--- NOTE | 2017-08-02 15:58 | DS ---
Physical Examination Vital Signs: Vital Signs Temperature 98 F 08/02/17 08:04 Pulse Rate 56 L 08/02/17 08:04 Respiratory Rate 18 08/02/17 08:04 Blood Pressure 112/68 08/02/17 08:04 O2 Sat by Pulse Oximetry (%) 99 08/02/17 08:00 Constitutional: Yes: No Distress, Calm Eyes: Yes: Conjunctiva Clear, EOM Intact HENT: Yes: Atraumatic, Normocephalic, Other Neck: Yes: Supple Cardiovascular: Yes: Regular Rate and Rhythm, S1, S2 Respiratory: Yes: Regular, CTA Bilaterally Gastrointestinal: Yes: Normal Bowel Sounds, Soft, Abdomen, Obese. No: Hepatomegaly, Splenomegaly ...Rectal Exam: Yes: Deferred Breast(s): Yes: WNL Musculoskeletal: Yes: WNL. No: Muscle Weakness Extremities: No: Calf Tenderness Edema: No Peripheral Pulses WNL: Yes Psychiatric: Yes: Alert, Oriented Labs: CBC, BMP 08/01/17 05:51 08/01/17 05:51 Discharge Summary Reason For Visit: ATRIAL FIBRILLATION AND FLUTTER Current Active Problems Atrial fibrillation and flutter (Acute) BPH (benign prostatic hyperplasia) (Acute) Chronic kidney disease (CKD) (Acute) Constipation (Acute) Dilated cardiomyopathy (Acute) Gout (Acute) Urinary retention (Acute) Urinary retention due to benign prostatic hyperplasia (Acute) Hospital Course: 71 yo male admitted with new onset A fibrillation/A flutter. HE was cardioverted and currently is in sinus rhythm. He also has h/o urinary retention and BPH. He came in with a Cates catheter which was removed, He was diagnosed with a UTI and started on Augmentin po. He is being discharged today and will follow up with his director of pediatric rehabilitation and Urologist Condition: Guarded - Instructions Referrals: Debbie Schultz MD [Primary Care Provider] - - Home Medications Comprehensive Discharge Medication List: Ambulatory Orders Amiodarone HCl [Cordarone -] 200 mg PO BID #60 tablet 08/02/17 Amox-Tr/K Cl [Augmentin 875-125mg Tablet -] 1 tab PO BID@0800,1730 #14 tablet Apixaban [Eliquis -] 5 mg PO BID #60 tablet 08/02/17 Colchicine [Colcrys -] 0.6 mg PO DAILY 30 Days #30 tablet 08/02/17 Tamsulosin HCl [Flomax -] 0.4 mg PO DAILY@0830 30 Days #30 cap.er.24h 08/02/17 Tamsulosin HCl [Flomax] 0.4 mg PO DAILY 30 Days cap.er.24h 08/02/17 Valsartan [Diovan] 40 mg PO DAILY #30 tablet 08/02/17
[2017-08-02 16:05] VITALS: BP 143/84; PULSE 95; TEMP 98.3
== END 2017-08-02 19:09 | disposition home or self-care (01) | DRG 309 ==
LOC: JER 15:49 → JERBED 17:52 → J4W 07-29 10:50
PROVIDERS: ADMIT Internal Medicine; ATTEND Internal Medicine
PROC: 5A2204Z Restoration of Cardiac Rhythm, Single (ICD-10-PCS; principal; 2017-08-02)
DX: I48.92 Unspecified atrial flutter (principal); N39.0 Urinary tract infection, site not specified; I12.9 Hypertensive chronic kidney disease with stage 1 through stage 4 chronic kidney disease, or unspecified chronic kidney disease; I48.91 Unspecified atrial fibrillation; K59.00 Constipation, unspecified; N40.1 Benign prostatic hyperplasia with lower urinary tract symptoms; R33.8 Other retention of urine; I99.8 Other disorder of circulatory system; N18.2 Chronic kidney disease, stage 2 (mild); M10.9 Gout, unspecified; I42.0 Dilated cardiomyopathy
CPT/HCPCS: 36415; 71045-TC-FY; 80048; 80053; 80061; 81003; 81015; 82550; 82553; 83721; 83735; 84443; 84484; 84550; 85025; 85610; 87086; 87186; 93005; 93010; 93306-TC; 93312; 93325; 99285-25

== ENCOUNTER 2020-10-26 14:30 | Emergency (ER) | payer OTHER, BC ==
[2020-10-26 14:39] VITALS: BMI 28.9
[2020-10-26 15:13] LABS: BASO % 0.5 % (0-2.0); EOS % 1.3 % (0-4.5); HEMATOCRIT 39.1 % (35.4-49); HEMOGLOBIN 13.4 GM/dL (11.7-16.9); LYMPH % 29.5 % (8-40); MCH 32.6 pg (25.7-33.7); MCHC 34.2 g/dl (32.0-35.9); MEAN CELL VOLUME 95.4 fl (80-96); MEAN PLT VOLUME 7.1 fl (7.5-11.1); NEUT % 52.7 % (42.8-82.8); PLATELET COUNT 155 10^3/uL (134-434); RDW 13.4 % (11.9-15.9); WHITE BLOOD COUNT 5.6 K/mm3 (4.0-10.0)
[2020-10-26 15:40] LABS: CHLORIDE 107 mmol/L (98-107); SODIUM 139 mmol/L (136-145)
[2020-10-26 15:42] LABS: ANION GAP 7 MMOL/L (8-16); CALCIUM 9.5 mg/dL (8.5-10.1); CO2 25 mmol/L (21-32); GLUCOSE,RANDOM 88 mg/dL (74-106)
[2020-10-26 15:45] LABS: CREATININE 1.7 mg/dL (0.55-1.3); SGOT/AST 38 U/L (15-37); SGPT/ALT 45 U/L (13-61)
[2020-10-26 15:47] LABS: BILIRUBIN,TOTAL 0.4 mg/dL (0.2-1); TOT PROT 7.7 g/dl (6.4-8.2)
[2020-10-26 15:48] LABS: ALK PHOS 70 U/L (45-117)
[2020-10-26 16:10] LABS: MAGNESIUM 1.9 mg/dL (1.8-2.4)
[2020-10-26 16:14] LABS: PHOSPHOROUS 3.2 mg/dL (2.5-4.9)
[2020-10-26 17:09] VITALS: BP 123/57; PULSE 58; TEMP 98.5
== END 2020-10-26 16:50 | disposition home or self-care (01) ==
LOC: JER 14:30
DX: R00.1 Bradycardia, unspecified (principal)
CPT/HCPCS: 36415; 71045-TC-FY; 80053; 83735; 84100; 84443; 84484; 85025; 93005; 93010; 99285-25

== ENCOUNTER 2021-09-04 11:50 | Emergency (ER) | payer OTHER, BC ==
[2021-09-04 11:57] VITALS: BP 126/51; PULSE 58; TEMP 98.2; BMI 29.9
[2021-09-04] MEDS ORDERED: RABIES VACCINE (PCEC)/PF 2.5 UNIT/VIAL IM ONE ×2 (12:15→12:17)
[2021-09-04] MEDS ORDERED: RABIES IMMUNE GLOBULIN 300 UNITS/1 ML VIAL IM ONE (12:15)
[2021-09-04] MEDS ORDERED: DIPHTH,PERTUSS(ACELL),TET 0.5 ML DISP.SYRIN IM ONE ×2 (12:15→12:17)
[2021-09-04] MEDS ORDERED: RABIES IMMUNE GLOBULIN 300 UNITS/1 ML VIAL ONE (12:17)
[2021-09-04] MEDS ORDERED: AMOX TR/POT CLAV 875MG/125MG TABLETS (FP) PO ONE (12:48)
[2021-09-04] MEDS ORDERED: AMOX TR/POT CLAV 875MG/125MG TABLETS (FP) ONE (12:54)
== END 2021-09-04 13:00 | disposition home or self-care (01) ==
LOC: FER 11:50
PROC: 3E023GC Introduction of Other Therapeutic Substance into Muscle, Percutaneous Approach (ICD-10-PCS; principal; 2021-09-04)
PROC: 3E0234Z Introduction of Serum, Toxoid and Vaccine into Muscle, Percutaneous Approach (ICD-10-PCS; principal; 2021-09-04)
DX: S61.250A Open bite of right index finger without damage to nail, initial encounter (principal); W55.51XA Bitten by raccoon, initial encounter; Z20.3 Contact with and (suspected) exposure to rabies
CPT/HCPCS: 90375; 90471; 90675; 90715; 96372; 99283-25

== ENCOUNTER 2021-09-07 15:14 | Emergency (ER) | payer OTHER, BC ==
[2021-09-07] MEDS ORDERED: RABIES VACCINE (PCEC)/PF 2.5 UNIT/VIAL IM ONE ×2 (15:40→15:50)
[2021-09-07 15:41] VITALS: BP 117/64; PULSE 75; TEMP 97.8; BMI 30.2
== END 2021-09-07 16:05 | disposition home or self-care (01) ==
LOC: FER 15:14
PROC: 3E0234Z Introduction of Serum, Toxoid and Vaccine into Muscle, Percutaneous Approach (ICD-10-PCS; principal; 2021-09-07)
DX: Z29.14 Encounter for prophylactic rabies immune globulin (principal)
CPT/HCPCS: 90675; 99284-25

== ENCOUNTER 2021-09-11 16:30 | Emergency (ER) | payer OTHER, BC ==
[2021-09-11] MEDS ORDERED: RABIES VACCINE (PCEC)/PF 2.5 UNIT/VIAL IM ONE ×2 (16:39→16:42)
[2021-09-11 16:48] VITALS: BP 134/81; PULSE 87; TEMP 98.2; BMI 30.1
== END 2021-09-11 16:50 | disposition home or self-care (01) ==
LOC: FER 16:30
PROC: 3E023GC Introduction of Other Therapeutic Substance into Muscle, Percutaneous Approach (ICD-10-PCS; principal; 2021-09-11)
DX: Z20.3 Contact with and (suspected) exposure to rabies (principal); Z23 Encounter for immunization
CPT/HCPCS: 90675; 99283-25

== ENCOUNTER 2021-09-18 15:49 | Emergency (ER) | payer OTHER, BC ==
[2021-09-18 16:06] VITALS: BP 116/57; PULSE 81; TEMP 98; BMI 30.4
[2021-09-18] MEDS ORDERED: RABIES VACCINE (PCEC)/PF 2.5 UNIT/VIAL IM ONE ×2 (16:29→16:31)
== END 2021-09-18 16:44 | disposition home or self-care (01) ==
LOC: FER 15:49
PROC: 3E0234Z Introduction of Serum, Toxoid and Vaccine into Muscle, Percutaneous Approach (ICD-10-PCS; principal; 2021-09-18)
DX: Z29.14 Encounter for prophylactic rabies immune globulin (principal)
CPT/HCPCS: 90675; 99284-25

== ENCOUNTER 2021-11-13 21:49 | Emergency (ER) | payer OTHER, BC ==
[2021-11-13 22:00] VITALS: BMI 30.4
[2021-11-13 22:01] VITALS: BP 135/61; PULSE 43; TEMP 98.6
[2021-11-13 22:35] LABS: EPITHELIAL CELLS RARE /hpf
== END 2021-11-13 22:43 | disposition home or self-care (01) ==
LOC: FER 21:49
DX: R33.9 Retention of urine, unspecified (principal)
CPT/HCPCS: 81003; 81015; 99283-25